=== PATIENT | male | born 1975 | race Caucasian/White ===

== ENCOUNTER 2018-11-03 18:39 | Emergency (ER) | payer OTHER ==
[2018-11-03] MEDS: predniSONE 20 MG TAB PO (19:33)
[2018-11-03] MEDS: FAMOTIDINE 20 MG TAB PO (19:33)
[2018-11-03] MEDS: DIPHTH/TET/ACEL PERTUSS (ADULT) 0.5 ML VIAL IM* (19:34)
[2018-11-03] MEDS: DIPHENHYDRAMINE 50 MG INJ IM (19:34)
== END 2018-11-03 20:01 | disposition home or self-care (01) ==
LOC: FTE 18:39
DX: T63.444A Toxic effect of venom of bees, undetermined, initial encounter (principal); Z23 Encounter for immunization
CPT/HCPCS: 90471; 90715; 96372; 99284-25